=== PATIENT | male | born 1955 | race Two or more races ===

== ENCOUNTER 2023-12-05 19:04 | Inpatient (IN) | payer OTHER, MEDICAID, MEDICARE ==
[2023-12-04 19:20] VITALS: PULSE 123; RESP 14; O2SAT 100
[~2023-12-05] VITALS: Ht 153.7 cm; Wt 83.5 kg
[~2023-12-05 19:04] MED LIST: ROCURONIUM BROMIDE 10MG/ML VIAL 5ML IV ONE
[2023-12-05 19:20] VITALS: PULSE 123; RESP 14; O2SAT 100
[2023-12-05] MEDS: SODIUM CHLORIDE 0.9% 1000ML BAG (SEPSIS BOLUS) IV ONE (19:30)
[2023-12-05] MEDS ORDERED: PIPERACILLIN/TAZO 3.375G/50ML 50 ML IV ONE (19:30)
[2023-12-05 19:43] LABS: CHLORIDE 107 mEq/L (98-107); POTASSIUM 3.1 mEq/L (3.5-5.1); SODIUM 141 mEq/L (136-145)
[2023-12-05 19:44] LABS: CALCIUM 8.9 mg/dL (8.7-10.4); CARBON DIOXIDE 15 mEq/L (21-32)
[2023-12-05 19:49] LABS: CREATININE 1.9 mg/dL (0.6-1.3); GLUCOSE 308 mg/dL (70-105); UREA NITROGEN BLOOD 17 mg/dL (9-23)
[2023-12-05 19:51] LABS: ALANINE AMINOTRANSFERASE 234 IU/L (10-49); ALBUMIN 3.8 g/dL (3.2-4.8); ASPARTATE AMINOTRANSFERASE 276 IU/L (<34); BILIRUBIN DIRECT 0.2 mg/dL (<=3.0); BILIRUBIN TOTAL 0.5 mg/dL (0.1-1.0); PROTEIN TOTAL 6.4 g/dL (6.0-8.3)
[2023-12-05 19:59] LABS: ETHANOL BLOOD < 10 mg/dL (<10); TROPONIN I HIGH SENSITIVITY 118 ng/L (3.0-53)
[2023-12-05 20:00] LABS: LACTIC ACID 14.2 mmol/L (0.4-2.0)
[2023-12-05 20:09] LABS: BASOPHILS % 0.7 % (0.0-2.0); EOSINOPHILS % 1.8 % (0.0-5.0); HEMATOCRIT. 45.3 % (42.0-52.0); HEMOGLOBIN. 14.1 g/dL (14.0-18.0); LYMPHOCYTES % 57.2 % (20.0-50.0); MEAN CORPUSCULAR HEMOGLOBIN 29.2 pg (28.0-32.0); MEAN CORPUSCULAR HGB CONC 31.3 g/dL (31.0-37.0); MEAN CORPUSCULAR VOLUME 93.3 fL (80.0-94.0); MEAN PLATELET VOLUME 9.7 fl (7.4-10.4); MONOCYTES % 4.6 % (2.0-8.0); NEUTROPHILS % 35.7 % (40.0-76.0); PLATELET 68 x1000/uL (130-400); RED BLOOD CELL COUNT 4.85 mill/uL (4.7-6.1); RED CELL DISTRIBUTION WIDTH 14.5 % (11.6-14.6); WHITE BLOOD COUNT 8.5 x1000/uL (4.5-11.0)
[2023-12-05] MEDS ORDERED: ALTEPLASE 100MG/VIAL IV ONE (20:30)
[2023-12-05 20:46] LABS: INR 1.5; PROTHROMBIN TIME 16.5 sec (9.6-11.0)
[2023-12-05] MEDS ORDERED: TENECTEPLASE 50MG/VIAL (FOR MI OR PE) IV NR (21:00)
[2023-12-05] MEDS: HEPARIN 80 UNITS/KG BOLUS IV SCH (21:23)
[2023-12-05] MEDS ORDERED: GUAIFENESIN 200MG/10ML SUGAR FREE UDC PO PRN (21:30)
[2023-12-05] MEDS ORDERED: DOCUSATE SODIUM 100MG CAPSULE PO PRN (21:30)
[2023-12-05] MEDS ORDERED: LORAZEPAM 2MG/ML INJ IV PRN (21:30)
[2023-12-05] MEDS ORDERED: CLONIDINE 0.1MG TABLET PO PRN (21:30)
[2023-12-05] MEDS ORDERED: IPRATROPIUM/ALBUTEROL 0.5-3(2.5)MG/3ML NEB HHN PRN (21:30)
[2023-12-05 22:13] LABS: THYROID STIMULATING HORMONE 12.76 uIU/mL (0.55-4.78)
[2023-12-05 22:31] LABS: TROPONIN I HIGH SENSITIVITY 2128 ng/L (3.0-53)
[2023-12-05] MEDS: HEPARIN 25,000 UNITS PREMIX 250 ML IV SCH (22:38)
[2023-12-05] MEDS: PIPERACILLIN/TAZO 3.375G/50ML 50 ML IV NR (23:02)
[2023-12-05 23:09] LABS: *AMPHETAMINES SCREEN URINE NEGATIVE (NEGATIVE); *BENZODIAZEPINES SCREEN URINE NEGATIVE (NEGATIVE)
[2023-12-05 23:10] LABS: *BARBITURATES SCREEN URINE NEGATIVE (NEGATIVE); *COCAINE SCREEN URINE NEGATIVE (NEGATIVE); CANNABINOID URINE SCREEN NEGATIVE (NEGATIVE); ECSTASY MDMA SCREEN URINE NEGATIVE (NEGATIVE); METHADONE URINE SCREEN NEGATIVE (NEGATIVE); OPIATES URINE SCREEN NEGATIVE (NEGATIVE); PHENCYCLIDINE URINE SCREEN NEGATIVE (NEGATIVE)
[2023-12-05 23:34] LABS: BG BASE EXCESS -10.6 mmol/L (-2.0-3.0); BG CARBOXYHEMOGLOBIN 0.1 % (0.5-1.5); BG DEOXYHEMOGLOBIN 0.6 % (0.0-5.0); BG FRACTION INSPIRED OXYGEN 100; BG HCO3 ACT 19.2 mmol/L (21.0-28.0); BG METHEMOGLOBIN 0.3 % (0.5-1.5); BG OXYGEN SATURATION 99.4 % (94.0-98.0); BG PCO2 58.5 mmHg (35.0-48.0); BG PH 7.135 (7.350-7.450); BG PO2 239.2 mmHg (83.0-108.0); BG SAMPLE SITE RIGHT RADIAL; BG TOTAL HEMOGLOBIN 16.3 g/dL (13.5-17.5); BG TOTAL RESPIRATORY RATE 14 b/min; BG VENT MODE VENT - AC
[2023-12-06] VITALS (91 sets, daily range): BP systolic 66–153; BP diastolic 36–123; PULSE 72–123; RESP 16–40; TEMP 36.22512–37.72524; O2SAT 85–100
[2023-12-06 00:21] LABS: GLUCOSE URINE 1+ (NEGATIVE); KETONES URINE NEGATIVE (NEGATIVE)
[2023-12-06 00:58] LABS: CLARITY URINE BLOODY (CLEAR); COLOR URINE RED (YELLOW)
[2023-12-06 00:59] LABS: LEUKOCYTE ESTERASE URINE TRACE (NEGATIVE); NITRITE URINE NEGATIVE (NEGATIVE); OCCULT BLOOD URINE 3+ (NEGATIVE); PH URINE 6.5 (4.5-8.0); PROTEIN URINE 1+ (NEGATIVE); SPECIFIC GRAVITY URINE 1.015 (1.005-1.030); UROBILINOGEN URINE 0.2 E.U./dL (0.2-1.0)
[2023-12-06 01:00] LABS: BACTERIA URINE 1+; RBC URINE TNTC /hpf (0-2); SQUAMOUS EPITHELIAL CELL URINE 1+ /lpf (RARE/1+)
[2023-12-06] MEDS: KCL 20MEQ/100ML PREMIX 100 ML IV NR (01:59)
[2023-12-06] MEDS: PROPOFOL 10MG/ML 100ML 100 ML IV PRN ×2 (02:02→19:01)
[2023-12-06 02:21] LABS: HEMATOCRIT. 45.3 % (42.0-52.0); HEMOGLOBIN. 14.7 g/dL (14.0-18.0); MEAN CORPUSCULAR HEMOGLOBIN 28.8 pg (28.0-32.0); MEAN CORPUSCULAR HGB CONC 32.5 g/dL (31.0-37.0); MEAN CORPUSCULAR VOLUME 88.5 fL (80.0-94.0); MEAN PLATELET VOLUME 8.8 fl (7.4-10.4); PLATELET 104 x1000/uL (130-400); RED BLOOD CELL COUNT 5.12 mill/uL (4.7-6.1); RED CELL DISTRIBUTION WIDTH 14.2 % (11.6-14.6)
[2023-12-06 02:25] LABS: CHLORIDE 109 mEq/L (98-107); POTASSIUM 3.8 mEq/L (3.5-5.1); SODIUM 141 mEq/L (136-145)
[2023-12-06 02:26] LABS: CALCIUM 8.4 mg/dL (8.7-10.4); CARBON DIOXIDE 23 mEq/L (21-32)
[2023-12-06 02:31] LABS: CREATINE KINASE MB FRACTION 18.8 ng/mL (0.5-3.6); CREATININE 1.7 mg/dL (0.6-1.3); GLUCOSE 176 mg/dL (70-105); UREA NITROGEN BLOOD 21 mg/dL (9-23)
[2023-12-06 02:33] LABS: CREATINE KINASE 420 IU/L (46-171); PHOSPHORUS 3.8 mg/dL (2.5-4.9)
[2023-12-06 02:35] LABS: DIFFERENTIAL COMMENT 1
[2023-12-06] MEDS ORDERED: IOHEXOL-350 100 ML BOTTLE ONE (03:19)
[2023-12-06] MEDS: POTASSIUM CHLORIDE 30 MEQ in DEXT 5%/0.9% NACL 1,000 ML IV SCH (03:24)
[2023-12-06 03:44] LABS: TROPONIN I HIGH SENSITIVITY 6343 ng/L (3.0-53)
[2023-12-06 04:00] LABS: PLATELET ESTIMATE NORMAL
[2023-12-06] MEDS: ACETAMINOPHEN 325MG TABLET PO PRN (04:39)
[2023-12-06] MEDS ORDERED: HEPARIN BOLUS PRN aPTT 37-44 IV (05:00)
[2023-12-06] MEDS ORDERED: HEPARIN BOLUS PRN aPTT <36 IV (05:00)
[2023-12-06] MEDS ORDERED: LIDOCAINE HCL 1% 10 MG/ML 10ML VIAL ONE (07:03)
[2023-12-06] MEDS: BLOOD SUGAR DIAGNOSTIC STRIP TEST SCH (07:50)
[2023-12-06] MEDS: INSULIN LISPRO 100 UNITS/ML SUBCUT SCH (08:20)
[2023-12-06] MEDS ORDERED: HEPARIN 1000 UNITS/ML 10ML ONE ×2 (09:13→10:08)
[2023-12-06] MEDS ORDERED: IODIXANOL 320MG/ML 100 ML BOTTLE IV ONE ×2 (09:13→09:35)
[2023-12-06] MEDS ORDERED: LIDOCAINE HCL 1% 20ML VIAL ONE ×2 (09:16→09:21)
[2023-12-06] MEDS: PANTOPRAZOLE SODIUM 40 MG/VIAL IV SCH (09:22)
[2023-12-06] MEDS ORDERED: FENTANYL CITRATE/PF 50MCG/ML 2ML VIAL ONE (10:04)
[2023-12-06 10:06] LABS: BG BASE EXCESS -4.8 mmol/L (-2.0-3.0); BG CARBOXYHEMOGLOBIN 0.9 % (0.5-1.5); BG DEOXYHEMOGLOBIN 1.1 % (0.0-5.0); BG FRACTION INSPIRED OXYGEN 40; BG HCO3 ACT 18.6 mmol/L (21.0-28.0); BG METHEMOGLOBIN 0.3 % (0.5-1.5); BG OXYGEN SATURATION 98.9 % (94.0-98.0); BG OXYHEMOGLOBIN 97.7 % (94.0-98.0); BG PCO2 30.4 mmHg (35.0-48.0); BG PH 7.405 (7.350-7.450); BG PO2 136.9 mmHg (83.0-108.0); BG SAMPLE SITE RIGHT RADIAL; BG TOTAL HEMOGLOBIN 14.7 g/dL (13.5-17.5); BG TOTAL RESPIRATORY RATE 22 b/min; BG VENT MODE VENT - AC
[2023-12-06] MEDS ORDERED: ATROPINE SULFATE 1MG/10ML SYR IV PRN (11:30)
[2023-12-06] MEDS ORDERED: RACEPINEPHRINE 2.25% 0.5ML NEB VIAL HHN NR (12:30)
[2023-12-06] MEDS ORDERED: RACEPINEPHRINE 2.25% 0.5ML NEB VIAL HHN PRN (12:45)
[2023-12-06] MEDS ORDERED: CEFEPIME 500 MG in DEXTROSE 5% WATER 50 ML IV SCH (14:00)
[2023-12-06] MEDS: LEVOTHYROXINE SODIUM 100 MCG/ VIAL IV SCH (14:18)
[2023-12-06] MEDS: METRONIDAZOLE 500 MG PREMIX 100 ML IV SCH (14:18)
[2023-12-06] MEDS: CEFEPIME 2GM/100ML 100 ML IV SCH ×2 (14:18→22:06)
[2023-12-06] MEDS: NOREPINEPHRINE 8MG/250ML PMX 250 ML IV PRN (14:19)
[2023-12-06] MEDS ORDERED: MIDAZOLAM 100MG/100ML PMX 100 ML IV PRN (15:00)
[2023-12-06 15:36] LABS: HEMATOCRIT 34.4 % (42.0-52.0)
[2023-12-06] MEDS: PHENYLEPHRINE 50MG/250ML PMX 250 ML IV PRN (17:43)
[2023-12-06] MEDS: MIDAZOLAM 100MG/100ML PMX 100 ML IV PRN (19:01)
[2023-12-06] MEDS: FENTANYL 2500MCG/250ML PMX 250 ML IV PRN (19:01)
[2023-12-07] VITALS (116 sets, daily range): BP systolic 58–202; BP diastolic 37–127; PULSE 60–101; RESP 16–23; TEMP 36.114–36.9474; O2SAT 94–100
[2023-12-07] MEDS: NOREPINEPHRINE 32 MG in DEXT 5% WATER 218 ML IV PRN (00:03)
[2023-12-07 07:14] LABS: BASOPHILS % 0.1 % (0.0-2.0); HEMATOCRIT. 32.9 % (42.0-52.0); HEMOGLOBIN. 10.5 g/dL (14.0-18.0); LYMPHOCYTES % 11.4 % (20.0-50.0); MEAN CORPUSCULAR HEMOGLOBIN 29.1 pg (28.0-32.0); MEAN CORPUSCULAR HGB CONC 31.9 g/dL (31.0-37.0); MEAN CORPUSCULAR VOLUME 91.4 fL (80.0-94.0); MEAN PLATELET VOLUME 10.6 fl (7.4-10.4); NEUTROPHILS % 81.5 % (40.0-76.0); PLATELET 105 x1000/uL (130-400); RED CELL DISTRIBUTION WIDTH 14.6 % (11.6-14.6); WHITE BLOOD COUNT 16.2 x1000/uL (4.5-11.0)
[2023-12-07 09:11] LABS: BG BASE EXCESS -11.2 mmol/L (-2.0-3.0); BG CARBOXYHEMOGLOBIN 0.3 % (0.5-1.5); BG DEOXYHEMOGLOBIN 2.2 % (0.0-5.0); BG FRACTION INSPIRED OXYGEN 90; BG HCO3 ACT 15.1 mmol/L (21.0-28.0); BG METHEMOGLOBIN 0.3 % (0.5-1.5); BG OXYGEN SATURATION 97.8 % (94.0-98.0); BG OXYHEMOGLOBIN 97.2 % (94.0-98.0); BG PCO2 34.9 mmHg (35.0-48.0); BG PH 7.253 (7.350-7.450); BG PO2 117.2 mmHg (83.0-108.0); BG SAMPLE SITE RIGHT RADIAL; BG TOTAL HEMOGLOBIN 10.1 g/dL (13.5-17.5); BG TOTAL RESPIRATORY RATE 23 b/min; BG VENT MODE VENT - P/C
[2023-12-07 10:53] LABS: BG PIP 16 cmH2O
[2023-12-07] MEDS: IPRATROPIUM/ALBUTEROL 0.5-3(2.5)MG/3ML NEB HHN SCH (12:05)
[2023-12-07] MEDS: PROPOFOL 10MG/ML 100ML 100 ML IV PRN (18:03)
[2023-12-07 18:16] LABS: CARBON DIOXIDE 14 mEq/L (21-32); CHLORIDE 118 mEq/L (98-107); SODIUM 142 mEq/L (136-145)
[2023-12-07 18:17] LABS: CALCIUM 7.1 mg/dL (8.7-10.4); POTASSIUM 5.9 mEq/L (3.5-5.1)
[2023-12-07 18:21] LABS: CREATININE 2.1 mg/dL (0.6-1.3)
[2023-12-07 18:22] LABS: GLUCOSE 148 mg/dL (70-105); UREA NITROGEN BLOOD 17 mg/dL (9-23)
[2023-12-07 18:24] LABS: PHOSPHORUS 2.7 mg/dL (2.5-4.9)
[2023-12-07] MEDS: DEXT 5%/0.45% NACL 1000ML 1,000 ML IV SCH (19:45)
[2023-12-07] MEDS: SODIUM POLYSTYRENE SULFONATE 15 G/60 ML BOT PO NR (19:47)
[2023-12-07 22:04] LABS: POTASSIUM 5.1 mEq/L (3.5-5.1)
[2023-12-07 22:05] LABS: CALCIUM 6.8 mg/dL (8.7-10.4)
[2023-12-07 22:07] LABS: BASOPHILS % 0.2 % (0.0-2.0); EOSINOPHILS % 0.3 % (0.0-5.0); HEMOGLOBIN. 8.1 g/dL (14.0-18.0); LYMPHOCYTES % 11.1 % (20.0-50.0); MEAN CORPUSCULAR HEMOGLOBIN 29.8 pg (28.0-32.0); MEAN CORPUSCULAR HGB CONC 33.6 g/dL (31.0-37.0); MEAN CORPUSCULAR VOLUME 88.5 fL (80.0-94.0); MEAN PLATELET VOLUME 9.4 fl (7.4-10.4); MONOCYTES % 6.8 % (2.0-8.0); NEUTROPHILS % 81.6 % (40.0-76.0); PLATELET 62 x1000/uL (130-400); RED BLOOD CELL COUNT 2.71 mill/uL (4.7-6.1); RED CELL DISTRIBUTION WIDTH 14.4 % (11.6-14.6); WHITE BLOOD COUNT 10.4 x1000/uL (4.5-11.0)
[2023-12-07 22:10] LABS: CREATININE 2.1 mg/dL (0.6-1.3)
[2023-12-08] VITALS (105 sets, daily range): BP systolic 68–166; BP diastolic 45–121; PULSE 72–140; RESP 15–35; TEMP 36.83628–37.89192; O2SAT 95–100
[2023-12-08 07:26] LABS: CALCIUM 7.1 mg/dL (8.7-10.4)
[2023-12-08 07:28] LABS: BASOPHILS % 0.3 % (0.0-2.0); EOSINOPHILS % 0.5 % (0.0-5.0); HEMATOCRIT. 24.1 % (42.0-52.0); HEMOGLOBIN. 7.8 g/dL (14.0-18.0); LYMPHOCYTES % 11.1 % (20.0-50.0); MEAN CORPUSCULAR HEMOGLOBIN 30.1 pg (28.0-32.0); MEAN CORPUSCULAR HGB CONC 32.4 g/dL (31.0-37.0); MONOCYTES % 9.9 % (2.0-8.0); NEUTROPHILS % 78.2 % (40.0-76.0); RED BLOOD CELL COUNT 2.59 mill/uL (4.7-6.1); RED CELL DISTRIBUTION WIDTH 14.7 % (11.6-14.6); WHITE BLOOD COUNT 10.3 x1000/uL (4.5-11.0)
[2023-12-08 07:31] LABS: CREATININE 2.9 mg/dL (0.6-1.3)
[2023-12-08] MEDS: INSULIN REGULAR (HUMULIN R) 1000UNITS/10ML VIAL IV NR (08:12)
[2023-12-08] MEDS: SODIUM BICARBONATE 8.4% 50MEQ/50ML SYR IV NR (08:13)
[2023-12-08] MEDS: DEXTROSE 50% WATER 50ML SYRINGE IV NR (08:15)
[2023-12-08] MEDS: CALCIUM GLUCONATE 1GM PREMIX 50 ML IV NR (08:18)
[2023-12-08 08:49] LABS: CREATINE KINASE 527 IU/L (46-171); PHOSPHORUS 3.2 mg/dL (2.5-4.9)
[2023-12-08 08:52] LABS: DIFFERENTIAL COMMENT 1
[2023-12-08 09:07] LABS: BG BASE EXCESS -5.6 mmol/L (-2.0-3.0); BG CARBOXYHEMOGLOBIN 0.8 % (0.5-1.5); BG DEOXYHEMOGLOBIN 1.6 % (0.0-5.0); BG FRACTION INSPIRED OXYGEN 80; BG HCO3 ACT 20.1 mmol/L (21.0-28.0); BG METHEMOGLOBIN 0.3 % (0.5-1.5); BG OXYGEN SATURATION 98.4 % (94.0-98.0); BG OXYHEMOGLOBIN 97.3 % (94.0-98.0); BG PCO2 40.4 mmHg (35.0-48.0); BG PH 7.314 (7.350-7.450); BG PO2 136.3 mmHg (83.0-108.0); BG SAMPLE SITE RIGHT RADIAL; BG TOTAL HEMOGLOBIN 6.5 g/dL (13.5-17.5); BG VENT MODE VENT - P/C
[2023-12-08] MEDS: MAGNESIUM 1 G PREMIX 100 ML IV NR (09:49)
[2023-12-08 09:55] LABS: MEAN PLATELET VOLUME 9.9 fl (7.4-10.4)
[2023-12-08 12:01] LABS: POTASSIUM 4.5 mEq/L (3.5-5.1)
[2023-12-08 12:03] LABS: CALCIUM 7.1 mg/dL (8.7-10.4)
[2023-12-08 12:07] LABS: CREATININE 3.4 mg/dL (0.6-1.3)
[2023-12-08 16:37] LABS: LACTIC ACID 4.4 mmol/L (0.4-2.0)
[2023-12-08 16:44] LABS: TROPONIN I HIGH SENSITIVITY 812 ng/L (3.0-53)
[2023-12-08] MEDS ORDERED: PROPOFOL 10MG/ML 100ML 100 ML IV PRN (18:30)
[2023-12-08 19:02] LABS: CREATININE URINE RANDOM 48.4 mg/dL
[2023-12-08] MEDS: SUCRALFATE 1G TABLET NG SCH (21:33)
[2023-12-09] VITALS (106 sets, daily range): BP systolic 81–139; BP diastolic 40–86; PULSE 95–129; RESP 17–42; TEMP 36.55848–38.0586; O2SAT 84–100
[2023-12-09 02:52] LABS: BASOPHILS % 0.4 % (0.0-2.0); EOSINOPHILS % 0.6 % (0.0-5.0); HEMATOCRIT. 24.1 % (42.0-52.0); HEMOGLOBIN. 7.9 g/dL (14.0-18.0); LYMPHOCYTES % 9.1 % (20.0-50.0); MEAN CORPUSCULAR HEMOGLOBIN 29.1 pg (28.0-32.0); MEAN CORPUSCULAR HGB CONC 32.8 g/dL (31.0-37.0); MEAN CORPUSCULAR VOLUME 88.7 fL (80.0-94.0); MEAN PLATELET VOLUME 9.7 fl (7.4-10.4); NEUTROPHILS % 82.9 % (40.0-76.0); RED BLOOD CELL COUNT 2.71 mill/uL (4.7-6.1); RED CELL DISTRIBUTION WIDTH 14.9 % (11.6-14.6); WHITE BLOOD COUNT 11.4 x1000/uL (4.5-11.0)
[2023-12-09 02:58] LABS: INR 1.4; PARTIAL THROMBOPLASTIN TIME 43.5 sec (23.4-31.0); PROTHROMBIN TIME 15.2 sec (9.6-11.0)
[2023-12-09 03:13] LABS: PLATELET 43 x1000/uL (130-400)
[2023-12-09 03:14] LABS: DIFFERENTIAL COMMENT 1
[2023-12-09 05:37] LABS: CALCIUM 7.1 mg/dL (8.7-10.4); CARBON DIOXIDE 15 mEq/L (21-32); CHLORIDE 112 mEq/L (98-107); SODIUM 137 mEq/L (136-145)
[2023-12-09] MEDS: DEXTROSE 50% WATER 50ML SYRINGE IV PRN (05:38)
[2023-12-09 05:42] LABS: IRON 56 ug/dL (65-175)
[2023-12-09 05:43] LABS: GLUCOSE 110 mg/dL (70-105); INR 1.4; PROTHROMBIN TIME 15.3 sec (9.6-11.0); TRIGLYCERIDE 226 mg/dL (0-150); UREA NITROGEN BLOOD 33 mg/dL (9-23)
[2023-12-09 05:45] LABS: TOTAL IRON BINDING CAPACITY 189 ug/dl (250-425)
[2023-12-09 05:47] LABS: FOLIC ACID (FOLATE) SERUM 2.31 ng/mL (>5.38)
[2023-12-09 05:48] LABS: FERRITIN 199 ng/mL (22-322)
[2023-12-09 05:49] LABS: VITAMIN B12 SERUM 466 pg/mL (211-911)
[2023-12-09 06:04] LABS: BASOPHILS % 0.3 % (0.0-2.0); EOSINOPHILS % 0.6 % (0.0-5.0); HEMATOCRIT. 24.4 % (42.0-52.0); HEMOGLOBIN. 7.9 g/dL (14.0-18.0); LYMPHOCYTES % 9.3 % (20.0-50.0); MEAN CORPUSCULAR HEMOGLOBIN 29.4 pg (28.0-32.0); MEAN CORPUSCULAR HGB CONC 32.5 g/dL (31.0-37.0); MEAN CORPUSCULAR VOLUME 90.6 fL (80.0-94.0); MEAN PLATELET VOLUME 9.8 fl (7.4-10.4); MONOCYTES % 7.6 % (2.0-8.0); NEUTROPHILS % 82.2 % (40.0-76.0); RED BLOOD CELL COUNT 2.69 mill/uL (4.7-6.1); RED CELL DISTRIBUTION WIDTH 15.2 % (11.6-14.6); WHITE BLOOD COUNT 11.5 x1000/uL (4.5-11.0)
[2023-12-09 06:08] LABS: CREATININE 4.8 mg/dL (0.6-1.3)
[2023-12-09 06:54] LABS: DIFFERENTIAL COMMENT 1
[2023-12-09 06:58] LABS: PLATELET 47 x1000/uL (130-400)
[2023-12-09] MEDS: CEFEPIME 2GM/100ML 100 ML IV SCH (08:00)
[2023-12-09] MEDS: PANTOPRAZOLE SODIUM 40 MG/VIAL IV SCH (08:27)
[2023-12-09] MEDS: ACETAMINOPHEN 325MG TABLET PO PRN (09:29)
[2023-12-09] MEDS: FOLIC ACID 1MG TABLET NG SCH (09:29)
[2023-12-09] MEDS ORDERED: DEXTROSE 50% WATER 50ML SYRINGE IV PRN (09:45)
[2023-12-09] MEDS ORDERED: DEXT 10% WATER 1,000 ML IV SCH (09:45)
[2023-12-09] MEDS: DEXT 10% WATER 1,000 ML IV SCH (10:19)
[2023-12-09 11:17] LABS: BG BASE EXCESS -14.9 mmol/L (-2.0-3.0); BG CARBOXYHEMOGLOBIN 0.7 % (0.5-1.5); BG DEOXYHEMOGLOBIN 6.9 % (0.0-5.0); BG FRACTION INSPIRED OXYGEN 60; BG HCO3 ACT 13.3 mmol/L (21.0-28.0); BG METHEMOGLOBIN 0.3 % (0.5-1.5); BG OXYHEMOGLOBIN 92.1 % (94.0-98.0); BG PCO2 41.9 mmHg (35.0-48.0); BG PO2 70.1 mmHg (83.0-108.0); BG SAMPLE SITE RIGHT RADIAL; BG TOTAL HEMOGLOBIN 7.7 g/dL (13.5-17.5); BG VENT MODE VENT - P/C
[2023-12-09 11:36] LABS: BASOPHILS % 0.4 % (0.0-2.0); CHLORIDE 110 mEq/L (98-107); EOSINOPHILS % 0.5 % (0.0-5.0); HEMATOCRIT. 23.4 % (42.0-52.0); HEMOGLOBIN. 7.6 g/dL (14.0-18.0); LYMPHOCYTES % 7.1 % (20.0-50.0); MEAN CORPUSCULAR HEMOGLOBIN 28.9 pg (28.0-32.0); MEAN CORPUSCULAR HGB CONC 32.3 g/dL (31.0-37.0); MEAN CORPUSCULAR VOLUME 89.7 fL (80.0-94.0); MEAN PLATELET VOLUME 9.7 fl (7.4-10.4); MONOCYTES % 4.7 % (2.0-8.0); NEUTROPHILS % 87.3 % (40.0-76.0); POTASSIUM 4.4 mEq/L (3.5-5.1); RED BLOOD CELL COUNT 2.61 mill/uL (4.7-6.1); RED CELL DISTRIBUTION WIDTH 15.3 % (11.6-14.6); SODIUM 134 mEq/L (136-145); WHITE BLOOD COUNT 11.2 x1000/uL (4.5-11.0)
[2023-12-09 11:37] LABS: CALCIUM 6.6 mg/dL (8.7-10.4); CARBON DIOXIDE 13 mEq/L (21-32)
[2023-12-09 11:42] LABS: GLUCOSE 246 mg/dL (70-105); UREA NITROGEN BLOOD 35 mg/dL (9-23)
[2023-12-09 11:44] LABS: ALANINE AMINOTRANSFERASE 95 IU/L (10-49); ALBUMIN 2.2 g/dL (3.2-4.8); ASPARTATE AMINOTRANSFERASE 105 IU/L (<34); DIFFERENTIAL COMMENT 1
[2023-12-09 11:47] LABS: ADD RBC MORPHOLOGY YES
[2023-12-09 11:54] LABS: HEPATITIS B SURFACE ANTIGEN NEGATIVE (Negative)
[2023-12-09] MEDS ORDERED: MIDAZOLAM 100MG/100ML PMX 100 ML IV PRN (12:00)
[2023-12-09 12:13] LABS: CREATININE 5.3 mg/dL (0.6-1.3)
[2023-12-09 12:14] LABS: HEPATITIS A AB IGM NEGATIVE (Negative)
[2023-12-09 12:15] LABS: HEPATITIS B CORE AB IGM NEGATIVE (Negative); HEPATITIS C AB NON REACTIVE (Neg) (Negative)
[2023-12-09] MEDS: SODIUM BICARBONATE 8.4% 50MEQ/50ML SYR IV NR (12:19)
[2023-12-09 12:40] LABS: INR 1.5; PARTIAL THROMBOPLASTIN TIME 53.5 sec (23.4-31.0); PROTHROMBIN TIME 16.1 sec (9.6-11.0)
[2023-12-09] MEDS ORDERED: BLOOD SUGAR DIAGNOSTIC STRIP TEST SCH (12:50)
[2023-12-09 12:56] LABS: FIBRINOGEN 252 mg/dL (200-400)
[2023-12-09 13:14] LABS: D-DIMER > 35.20 mg/L FEU (<0.50)
[2023-12-09] MEDS: SODIUM CHLORIDE 0.9% IV SCH (15:45)
[2023-12-09] MEDS: ARGATROBAN IV SCH (15:45)
[2023-12-09 16:10] LABS: ANISOCYTOSIS 1+; PLATELET 49 x1000/uL (130-400); PLATELET ESTIMATE MARKEDLY DECREASED
[2023-12-09 22:56] LABS: PLATELET 44 x1000/uL (130-400)
[2023-12-10] VITALS (104 sets, daily range): BP systolic 69–158; BP diastolic 47–86; PULSE 98–123; RESP 16–31; TEMP 36.50292–37.94748; O2SAT 87–99
[2023-12-10] MEDS: CEFEPIME 1GM/50ML 50 ML IV SCH (08:02)
[2023-12-10 09:10] LABS: PROTHROMBIN TIME 67.4 sec (9.6-11.0)
[2023-12-10 10:20] LABS: BASOPHILS % 0.2 % (0.0-2.0); EOSINOPHILS % 0.8 % (0.0-5.0); HEMATOCRIT. 22.2 % (42.0-52.0); HEMOGLOBIN. 7.4 g/dL (14.0-18.0); MEAN CORPUSCULAR HEMOGLOBIN 29.3 pg (28.0-32.0); MEAN CORPUSCULAR HGB CONC 33.3 g/dL (31.0-37.0); MEAN PLATELET VOLUME 10.4 fl (7.4-10.4); MONOCYTES % 7.5 % (2.0-8.0); NEUTROPHILS % 83.5 % (40.0-76.0); PLATELET 57 x1000/uL (130-400); RED BLOOD CELL COUNT 2.52 mill/uL (4.7-6.1); RED CELL DISTRIBUTION WIDTH 15.4 % (11.6-14.6); WHITE BLOOD COUNT 12.3 x1000/uL (4.5-11.0)
[2023-12-10 10:22] LABS: DIFFERENTIAL COMMENT 1
[2023-12-10 10:24] LABS: POTASSIUM 4.5 mEq/L (3.5-5.1)
[2023-12-10 10:25] LABS: CALCIUM 6.4 mg/dL (8.7-10.4)
[2023-12-10 10:30] LABS: CREATININE 4.5 mg/dL (0.6-1.3)
[2023-12-10 15:18] LABS: D-DIMER 31.69 mg/L FEU (<0.50)
[2023-12-10 15:21] LABS: ALANINE AMINOTRANSFERASE 74 IU/L (10-49); ALBUMIN 2.3 g/dL (3.2-4.8); ASPARTATE AMINOTRANSFERASE 107 IU/L (<34); BILIRUBIN DIRECT 1.5 mg/dL (<=3.0); BILIRUBIN TOTAL 2.1 mg/dL (0.1-1.0); PROTEIN TOTAL 4.2 g/dL (6.0-8.3)
[2023-12-10 20:42] LABS: LACTATE DEHYDROGENASE 1369 IU/L (120-246)
[2023-12-11] VITALS (105 sets, daily range): BP systolic 66–137; BP diastolic 39–86; PULSE 100–121; RESP 18–33; TEMP 37.05852–37.94748; O2SAT 70–97
[2023-12-11 02:32] LABS: HEMATOCRIT 26.7 % (42.0-52.0)
[2023-12-11 02:54] LABS: PROTHROMBIN TIME 67.2 sec (9.6-11.0)
[2023-12-11 04:12] LABS: INR 6.9
[2023-12-11 05:43] LABS: HEMATOCRIT. 26.2 % (42.0-52.0); HEMOGLOBIN. 8.7 g/dL (14.0-18.0); MEAN CORPUSCULAR HGB CONC 33.1 g/dL (31.0-37.0); MEAN CORPUSCULAR VOLUME 90.8 fL (80.0-94.0); PLATELET 61 x1000/uL (130-400); POTASSIUM 4.4 mEq/L (3.5-5.1); RED BLOOD CELL COUNT 2.88 mill/uL (4.7-6.1); RED CELL DISTRIBUTION WIDTH 16.3 % (11.6-14.6); WHITE BLOOD COUNT 12.1 x1000/uL (4.5-11.0)
[2023-12-11 05:45] LABS: CALCIUM 6.6 mg/dL (8.7-10.4)
[2023-12-11 05:55] LABS: PROTHROMBIN TIME 64.7 sec (9.6-11.0)
[2023-12-11 05:57] LABS: CREATININE 5.5 mg/dL (0.6-1.3)
[2023-12-11 06:06] LABS: INR 6.7; PARTIAL THROMBOPLASTIN TIME 140.9 sec (23.4-31.0)
[2023-12-11 06:12] LABS: DIFFERENTIAL COMMENT 1
[2023-12-11] MEDS ORDERED: DEXTROSE 50% WATER 50ML SYRINGE IV PRN (08:15)
[2023-12-11] MEDS: FOLIC ACID/VITAMIN B COMP W-C TABLET PO SCH (09:00)
[2023-12-11 09:52] LABS: NUCLEATED RED BLOOD CELLS 13 /100 WBC
[2023-12-11 09:53] LABS: ANISOCYTOSIS 1+; PLATELET ESTIMATE DECREASED
[2023-12-11] MEDS ORDERED: ARGATROBAN 250 MG in SODIUM CHLORIDE 0.9% 247.5 ML IV SCH (11:15)
[2023-12-11] MEDS: INSULIN LISPRO 100 UNITS/ML SUBCUT SCH (12:00)
[2023-12-11] MEDS: BLOOD SUGAR DIAGNOSTIC STRIP TEST SCH (12:00)
[2023-12-11] MEDS ORDERED: LIDOCAINE HCL 1% 20ML VIAL ONE (12:57)
[2023-12-11] MEDS ORDERED: IODIXANOL 320MG/ML 100 ML BOTTLE IV ONE (13:26)
[2023-12-11] MEDS: QUETIAPINE FUMARATE 25MG TABLET PO SCH (18:22)
[2023-12-11] MEDS: DEXMEDETOMIDINE 400 MCG/100 ML 100 ML IV PRN (19:26)
[2023-12-11] MEDS ORDERED: LEVETIRACETAM 500MG in NACL 100ML PREMIX IV SCH (21:00)
[2023-12-11] MEDS: LEVETIRACETAM 500MG PREMIX 100ML IV SCH (21:20)
[2023-12-11] MEDS: ONDANSETRON HCL 4MG/2ML INJ IV PRN (21:21)
[2023-12-11 22:40] LABS: PROTHROMBIN TIME 56.2 sec (9.6-11.0)
[2023-12-11 22:42] LABS: INR 5.7
[2023-12-12] VITALS (59 sets, daily range): BP systolic 45–187; BP diastolic 26–84; PULSE 44–138; RESP 16–43; TEMP 36.16956–37.72524; O2SAT 7–93
[2023-12-12 01:55] LABS: PROTHROMBIN TIME 53.5 sec (9.6-11.0)
[2023-12-12 02:10] LABS: BG BASE EXCESS -10.9 mmol/L (-2.0-3.0); BG CARBOXYHEMOGLOBIN 0.6 % (0.5-1.5); BG FRACTION INSPIRED OXYGEN 100; BG HCO3 ACT 20.1 mmol/L (21.0-28.0); BG METHEMOGLOBIN 0.3 % (0.5-1.5); BG OXYGEN SATURATION 72.8 % (94.0-98.0); BG OXYHEMOGLOBIN 72.1 % (94.0-98.0); BG PCO2 77.1 mmHg (35.0-48.0); BG PH 7.035 (7.350-7.450); BG PO2 50.7 mmHg (83.0-108.0); BG SAMPLE SITE RIGHT RADIAL; BG TOTAL HEMOGLOBIN 9.8 g/dL (13.5-17.5); BG VENT MODE VENT - P/C
[2023-12-12 02:13] LABS: INR 5.4; PARTIAL THROMBOPLASTIN TIME 105.6 sec (23.4-31.0)
[2023-12-12] MEDS: SODIUM BICARBONATE 8.4% 50MEQ/50ML SYR IV NR ×2 (02:33→08:59)
[2023-12-12] MEDS: SODIUM BICARBONATE 150 MEQ in SODIUM CHLORIDE 0.45% 850 ML IV SCH (05:10)
[2023-12-12] MEDS: VASOPRESSIN 20 UNIT in SODIUM CHLORIDE 0.9% 99 ML IV PRN (06:03)
[2023-12-12 06:26] LABS: POTASSIUM 5.4 mEq/L (3.5-5.1)
[2023-12-12 06:27] LABS: CALCIUM 6.2 mg/dL (8.7-10.4)
[2023-12-12 06:31] LABS: HEMATOCRIT. 27.2 % (42.0-52.0); HEMOGLOBIN. 8.8 g/dL (14.0-18.0); MEAN CORPUSCULAR HEMOGLOBIN 30.2 pg (28.0-32.0); MEAN CORPUSCULAR HGB CONC 32.5 g/dL (31.0-37.0); MEAN PLATELET VOLUME 10.3 fl (7.4-10.4); PLATELET 85 x1000/uL (130-400); RED BLOOD CELL COUNT 2.92 mill/uL (4.7-6.1)
[2023-12-12 06:42] LABS: PROTHROMBIN TIME 57.2 sec (9.6-11.0)
[2023-12-12 07:01] LABS: BG BASE EXCESS -2.9 mmol/L (-2.0-3.0); BG CARBOXYHEMOGLOBIN 0.5 % (0.5-1.5); BG DEOXYHEMOGLOBIN 33.1 % (0.0-5.0); BG FRACTION INSPIRED OXYGEN 100; BG HCO3 ACT 25.1 mmol/L (21.0-28.0); BG METHEMOGLOBIN 0.3 % (0.5-1.5); BG OXYGEN SATURATION 66.6 % (94.0-98.0); BG OXYHEMOGLOBIN 66.1 % (94.0-98.0); BG PCO2 61.1 mmHg (35.0-48.0); BG PH 7.231 (7.350-7.450); BG PO2 37.9 mmHg (83.0-108.0); BG SAMPLE SITE RIGHT RADIAL; BG TOTAL HEMOGLOBIN 9.8 g/dL (13.5-17.5); BG VENT MODE VENT - AC
[2023-12-12 07:12] LABS: CREATININE 6.2 mg/dL (0.6-1.3)
[2023-12-12 07:29] LABS: INR 5.8
[2023-12-12 07:31] LABS: PARTIAL THROMBOPLASTIN TIME 118.8 sec (23.4-31.0)
[2023-12-12 07:41] LABS: DIFFERENTIAL COMMENT 1
[2023-12-12] MEDS ORDERED: METOCLOPRAMIDE HCL 10MG/2ML VIAL IV PRN (07:45)
[2023-12-12] MEDS: EPINEPHRINE 10 MG in SODIUM CHLORIDE 0.9% 240 ML IV PRN (08:45)
[2023-12-12] MEDS ORDERED: SODIUM ZIRCONIUM CYCLOSILICATE 10GM/PACKET PO NR (09:15)
[2023-12-12] MEDS: SODIUM CHLORIDE 0.9% 1,000 ML IV SCH (10:02)
[2023-12-12] MEDS ORDERED: DEXT IV SCH (10:30)
[2023-12-12] MEDS ORDERED: NACL IV SCH (10:30)
[2023-12-12] MEDS ORDERED: SODIUM BICARBONATE IV SCH (10:30)
[2023-12-13 13:16] LABS: NUCLEATED RED BLOOD CELLS 15 /100 WBC
[2023-12-13 13:17] LABS: ANISOCYTOSIS 1+; PLATELET ESTIMATE DECREASED
[2023-12-15 19:10] LABS: GLYCOPROTEIN IV AB Negative (Negative); HLA CLASS 1 ANTIBODY Negative (Negative); IIb/IIIa ANTIBODY Negative (Negative); Ia/IIa ANTIBODY Negative (Negative); Ib/IX ANTIBODY Negative (Negative)
== END 2023-12-12 10:40 | DRG 853 ==
LOC: ER 19:04 → CVICU 20:52 → EDBEDREQTM 21:08 → EDBEDREQ 21:08
PROVIDERS: ADMIT Internal Medicine; ATTEND Internal Medicine
PROC: 5A1955Z Respiratory Ventilation, Greater than 96 Consecutive Hours (ICD-10-PCS; 2023-12-05)
PROC: 0BH17EZ Insertion of Endotracheal Airway into Trachea, Via Natural or Artificial Opening (ICD-10-PCS; 2023-12-05)
PROC: 02CR3ZZ Extirpation of Matter from Left Pulmonary Artery, Percutaneous Approach (ICD-10-PCS; principal; 2023-12-06)
PROC: B31TYZZ Fluoroscopy of Left Pulmonary Artery using Other Contrast (ICD-10-PCS; 2023-12-06)
PROC: B31SYZZ Fluoroscopy of Right Pulmonary Artery using Other Contrast (ICD-10-PCS; 2023-12-06)
PROC: 4A023N6 Measurement of Cardiac Sampling and Pressure, Right Heart, Percutaneous Approach (ICD-10-PCS; 2023-12-06)
PROC: 02H633Z Insertion of Infusion Device into Right Atrium, Percutaneous Approach (ICD-10-PCS; 2023-12-06)
PROC: B548ZZA Ultrasonography of Superior Vena Cava, Guidance (ICD-10-PCS; 2023-12-06)
PROC: 30233N1 Transfusion of Nonautologous Red Blood Cells into Peripheral Vein, Percutaneous Approach (ICD-10-PCS; 2023-12-08)
PROC: 02HV33Z Insertion of Infusion Device into Superior Vena Cava, Percutaneous Approach (ICD-10-PCS; 2023-12-09)
PROC: B548ZZA Ultrasonography of Superior Vena Cava, Guidance (ICD-10-PCS; 2023-12-09)
PROC: 5A1D70Z Performance of Urinary Filtration, Intermittent, Less than 6 Hours Per Day (ICD-10-PCS; 2023-12-09)
PROC: 5A1D70Z Performance of Urinary Filtration, Intermittent, Less than 6 Hours Per Day (ICD-10-PCS; 2023-12-10)
PROC: 06H03DZ Insertion of Intraluminal Device into Inferior Vena Cava, Percutaneous Approach (ICD-10-PCS; 2023-12-11)
PROC: 30233K1 Transfusion of Nonautologous Frozen Plasma into Peripheral Vein, Percutaneous Approach (ICD-10-PCS; 2023-12-11)
PROC: 4A00X4Z Measurement of Central Nervous Electrical Activity, External Approach (ICD-10-PCS; 2023-12-11)
PROC: 5A12012 Performance of Cardiac Output, Single, Manual (ICD-10-PCS; 2023-12-12)
DX: A41.9 Sepsis, unspecified organism (principal); D65 Disseminated intravascular coagulation [defibrination syndrome]; G93.41 Metabolic encephalopathy; I21.4 Non-ST elevation (NSTEMI) myocardial infarction; I26.92 Saddle embolus of pulmonary artery without acute cor pulmonale; J69.0 Pneumonitis due to inhalation of food and vomit; J96.01 Acute respiratory failure with hypoxia; N17.0 Acute kidney failure with tubular necrosis; K72.00 Acute and subacute hepatic failure without coma; J96.02 Acute respiratory failure with hypercapnia; I26.02 Saddle embolus of pulmonary artery with acute cor pulmonale; E87.20 Acidosis, unspecified; N13.2 Hydronephrosis with renal and ureteral calculous obstruction; R57.9 Shock, unspecified; M62.82 Rhabdomyolysis; R04.2 Hemoptysis; G93.1 Anoxic brain damage, not elsewhere classified; I46.9 Cardiac arrest, cause unspecified; E78.1 Pure hyperglyceridemia; E87.6 Hypokalemia; Z66 Do not resuscitate; I12.9 Hypertensive chronic kidney disease with stage 1 through stage 4 chronic kidney disease, or unspecified chronic kidney disease; N18.9 Chronic kidney disease, unspecified; K21.9 Gastro-esophageal reflux disease without esophagitis; R73.9 Hyperglycemia, unspecified; E89.0 Postprocedural hypothyroidism; R74.01 Elevation of levels of liver transaminase levels; D64.9 Anemia, unspecified; F32.A Depression, unspecified; K80.20 Calculus of gallbladder without cholecystitis without obstruction; E87.5 Hyperkalemia; E83.42 Hypomagnesemia; E83.51 Hypocalcemia; E16.2 Hypoglycemia, unspecified; E53.8 Deficiency of other specified B group vitamins; Z85.850 Personal history of malignant neoplasm of thyroid; Z86.718 Personal history of other venous thrombosis and embolism; Z86.711 Personal history of pulmonary embolism; Z86.73 Personal history of transient ischemic attack (TIA), and cerebral infarction without residual deficits; Z79.01 Long term (current) use of anticoagulants; Z79.899 Other long term (current) drug therapy
CPT/HCPCS: 31500; 36415; 36556; 36573; 36600; 37184; 37191; 70551; 71045; 71275; 74018; 74174; 75743; 75825; 76770; 76937; 80048; 80053; 80061; 80076; 80305; 80320; 81003; 82375; 82550; 82553; 82570; 82607; 82728; 82746; 82805; 82962; 83036; 83540; 83550; 83605; 83615; 83735; 83880; 84100; 84145; 84300; 84436; 84443; 84478; 84484; 85014; 85018; 85025; 85044; 85347; 85362; 85379; 85384; 86022; 86705; 86709; 86850; 86900; 86920; 86927; 87070; 87340; 90935; 93005; 93306; 93923; 93970; 94003; 94640; 95816; 99291; C1725; C1752; C1769; C1880; C1887; C1893; J0610; J0692; J1644; J1815; J1953; J2250; J2405; J2470; J2543; J2704; J3010; J3101; J3475; J3480; J3490; J7030; J7042; J7050; J7060; P9016; P9017; Q9967; C1757; G0480; J0883